=== PATIENT | male | born 1980 | race Caucasian/White ===

== ENCOUNTER 2019-03-15 11:33 | Emergency (ER) | payer OTHER ==
[2019-03-15 11:53] VITALS: BP 134/75
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
[2019-03-15] MEDS ORDERED: Tetan/Diph/Pertus SYR(Tdap)* 0.5 ML SYR(BOOSTRIX) use SYR IM ONE (12:23)
== END 2019-03-15 14:03 | disposition home or self-care (01) ==
LOC: UCEAST 11:33
DX: S60.112A Contusion of left thumb with damage to nail, initial encounter (principal); V13.4XXA Pedal cycle driver injured in collision with car, pick-up truck or van in traffic accident, initial encounter; Y93.55 Activity, bike riding; Y92.9 Unspecified place or not applicable; Z23 Encounter for immunization; M62.838 Other muscle spasm; M25.572 Pain in left ankle and joints of left foot; M61.06 Myositis ossificans traumatica, lower leg; M25.512 Pain in left shoulder
CPT/HCPCS: 71046; 90715; 99213; G0463